=== PATIENT | male | born 1960 | race Caucasian/White ===

== ENCOUNTER → 2018-11-23 | Outpatient (CLI) | payer BC ==
[2018-11-23 16:56] LABS: BASOPHILS ABSOLUTE AUTO 0.02 K/mm3 (0.00-0.23); BASOPHILS PERCENT AUTO 0 % (0-2); EOSINOPHILS ABSOLUTE AUTO 0.01 K/mm3 (0.00-0.68); EOSINOPHILS PERCENT AUTO 0 % (0-6); Hemoglobin 13.1 g/dL (13.5-17.5); IMMATURE GRAN ABSOLUTE AUTO 0.04 K/mm3 (0.00-0.10); IMMATURE GRAN PERCENT AUTO 0 % (0-1); LYMPHOCYTES ABSOLUTE AUTO 1.74 K/mm3 (0.84-5.20); LYMPHOCYTES PERCENT AUTO 19 % (21-46); MONOCYTES ABSOLUTE AUTO 0.92 K/mm3 (0.16-1.47); MONOCYTES PERCENT AUTO 10 % (4-13); Mean Corpuscular HGB 30.3 pg (26.0-34.0); Mean Corpuscular HGB Conc 34.5 g/dL (31.5-36.5); Mean Corpuscular Volume 88 fL (80-100); Mean Platelet Volume 10.6 fL (9.1-12.4); NEUTROPHILS ABSOLUTE AUTO 6.48 K/mm3 (1.96-9.15); NEUTROPHILS PERCENT AUTO 70 % (41-73); Platelet Count 151 K/mm3 (150-400); RDW Coefficient Variation 12.3 % (11.7-14.2); RDW Standard Deviation 39.5 fL (35.1-46.3); Red Blood Cell Count 4.33 M/mm3 (4.30-5.90); White Blood Cell Count 9.21 K/mm3 (4.00-11.30)
[2018-11-23 17:20] LABS: Influenza A Negative (NEGATIVE); Influenza B Negative (NEGATIVE)
[2018-11-23 17:21] LABS: Alanine Aminotransfer (ALT/SGP 34 U/L (12-78); Albumin, Blood 3.9 g/dL (3.4-5.0); Albumin/Globulin Ratio 1.1 (0.8-1.8); Alk Phos 105 U/L (50-136); Anion Gap 7 mmol/L (6-16); Aspartate Aminotrans (AST/SGOT 24 U/L (12-37); Bilirubin, Total 2.7 mg/dL (0.1-1.0); Blood Urea Nitrogen 15 mg/dL (8-24); Bun/Creatinine Ratio 15.9 (12.0-20.0); CO2, Blood 29 mmol/L (21-32); Calcium, Blood 8.7 mg/dL (8.5-10.1); Chloride, Blood 100 mmol/L (98-108); Creatinine, Blood 0.94 mg/dL (0.60-1.20); Globulin, Blood 3.6 g/dL (2.2-4.0); Glomerular Filtration Rate >60 (60-); Glucose, Blood 109 mg/dL (70-99); Potassium, Blood 3.6 mmol/L (3.5-5.5); Sodium, Blood 136 mmol/L (136-145); Total Protein, Blood 7.5 g/dL (6.4-8.2)
== END | disposition home or self-care (01) ==
LOC: LAB 16:25 → LAB SHORT 16:25
PROVIDERS: Physician Assistant
DX: R50.9 Fever, unspecified (principal); R53.83 Other fatigue
CPT/HCPCS: 80053; 83690; 85025; 87804

== ENCOUNTER → 2018-12-21 | Outpatient (CLI) | payer BC ==
[2018-12-21 12:57] LABS: BASOPHILS ABSOLUTE AUTO 0.02 K/mm3 (0.00-0.23); BASOPHILS PERCENT AUTO 0 % (0-2); EOSINOPHILS ABSOLUTE AUTO 0.01 K/mm3 (0.00-0.68); EOSINOPHILS PERCENT AUTO 0 % (0-6); Hematocrit 40.2 % (37.0-53.0); Hemoglobin 13.7 g/dL (13.5-17.5); IMMATURE GRAN ABSOLUTE AUTO 0.03 K/mm3 (0.00-0.10); IMMATURE GRAN PERCENT AUTO 0 % (0-1); LYMPHOCYTES ABSOLUTE AUTO 0.92 K/mm3 (0.84-5.20); LYMPHOCYTES PERCENT AUTO 12 % (21-46); MONOCYTES ABSOLUTE AUTO 0.72 K/mm3 (0.16-1.47); MONOCYTES PERCENT AUTO 9 % (4-13); Mean Corpuscular HGB 29.6 pg (26.0-34.0); Mean Corpuscular HGB Conc 34.1 g/dL (31.5-36.5); Mean Corpuscular Volume 87 fL (80-100); Mean Platelet Volume 11.5 fL (9.1-12.4); NEUTROPHILS PERCENT AUTO 79 % (41-73); Platelet Count 159 K/mm3 (150-400); RDW Standard Deviation 41.2 fL (35.1-46.3); Red Blood Cell Count 4.63 M/mm3 (4.30-5.90)
[2018-12-21 13:11] LABS: Alanine Aminotransfer (ALT/SGP 25 U/L (12-78); Albumin, Blood 3.8 g/dL (3.4-5.0); Albumin/Globulin Ratio 1.1 (0.8-1.8); Alk Phos 95 U/L (50-136); Anion Gap 6 mmol/L (6-16); Aspartate Aminotrans (AST/SGOT 22 U/L (12-37); Bilirubin, Total 2.4 mg/dL (0.1-1.0); Blood Urea Nitrogen 15 mg/dL (8-24); Bun/Creatinine Ratio 16.3 (12.0-20.0); CO2, Blood 28 mmol/L (21-32); Calcium, Blood 8.5 mg/dL (8.5-10.1); Chloride, Blood 101 mmol/L (98-108); Creatinine, Blood 0.92 mg/dL (0.60-1.20); Globulin, Blood 3.6 g/dL (2.2-4.0); Glomerular Filtration Rate >60 (60-); Glucose, Blood 90 mg/dL (70-99); Sodium, Blood 135 mmol/L (136-145); Total Protein, Blood 7.4 g/dL (6.4-8.2)
== END | disposition home or self-care (01) ==
LOC: LAB SHORT 11:45 → LAB 11:45
PROVIDERS: Emergency Medicine
DX: R53.83 Other fatigue (principal)
CPT/HCPCS: 80053; 83690; 85025

== ENCOUNTER 2019-01-05 07:51 | Emergency (ER) | payer BC ==
[~2019-01-05] VITALS: Ht 180.3 cm; Wt 72.6 kg
[2019-01-05 08:33] LABS: BASOPHILS ABSOLUTE AUTO 0.02 K/mm3 (0.00-0.23); BASOPHILS PERCENT AUTO 0 % (0-2); EOSINOPHILS ABSOLUTE AUTO 0.07 K/mm3 (0.00-0.68); EOSINOPHILS PERCENT AUTO 1 % (0-6); Hematocrit 40.2 % (37.0-53.0); Hemoglobin 13.3 g/dL (13.5-17.5); IMMATURE GRAN ABSOLUTE AUTO 0.03 K/mm3 (0.00-0.10); IMMATURE GRAN PERCENT AUTO 0 % (0-1); LYMPHOCYTES ABSOLUTE AUTO 1.62 K/mm3 (0.84-5.20); LYMPHOCYTES PERCENT AUTO 20 % (21-46); MONOCYTES ABSOLUTE AUTO 0.65 K/mm3 (0.16-1.47); MONOCYTES PERCENT AUTO 8 % (4-13); Mean Corpuscular HGB Conc 33.1 g/dL (31.5-36.5); Mean Corpuscular Volume 85 fL (80-100); Mean Platelet Volume 10.2 fL (9.1-12.4); NEUTROPHILS ABSOLUTE AUTO 5.66 K/mm3 (1.96-9.15); NEUTROPHILS PERCENT AUTO 70 % (41-73); Platelet Count 230 K/mm3 (150-400); RDW Coefficient Variation 12.8 % (11.7-14.2); RDW Standard Deviation 39.2 fL (35.1-46.3); Red Blood Cell Count 4.75 M/mm3 (4.30-5.90); White Blood Cell Count 8.05 K/mm3 (4.00-11.30)
[2019-01-05 09:00] LABS: Alanine Aminotransfer (ALT/SGP 45 U/L (12-78); Albumin, Blood 3.6 g/dL (3.4-5.0); Alk Phos 92 U/L (50-136); Anion Gap 7 mmol/L (6-16); Aspartate Aminotrans (AST/SGOT 49 U/L (12-37); Bilirubin, Total 0.9 mg/dL (0.1-1.0); Blood Urea Nitrogen 9 mg/dL (8-24); Bun/Creatinine Ratio 11.2 (12.0-20.0); CO2, Blood 29 mmol/L (21-32); Chloride, Blood 104 mmol/L (98-108); Creatinine, Blood 0.81 mg/dL (0.60-1.20); Globulin, Blood 3.7 g/dL (2.2-4.0); Glomerular Filtration Rate >60 (60-); Glucose, Blood 130 mg/dL (70-99); Potassium, Blood 3.6 mmol/L (3.5-5.5); Sodium, Blood 140 mmol/L (136-145); Total Protein, Blood 7.3 g/dL (6.4-8.2)
[2019-01-05 09:01] LABS: Troponin I 0.037 ng/mL (0.000-0.040)
== END 2019-01-05 10:10 | disposition home or self-care (01) ==
LOC: ER 07:51
PROVIDERS: Emergency Medicine
DX: R78.81 Bacteremia (principal); R63.4 Abnormal weight loss; Z68.22 Body mass index [BMI] 22.0-22.9, adult
CPT/HCPCS: 36415; 71046; 80053; 83690; 84484; 85025; 93005; 93010; 99285-25

== ENCOUNTER → 2024-09-05 | Outpatient (CLI) | payer OTHER ==
[~2024-09-05] MED LIST: AMOX-CLAV 875-1 EAC5
== END ==
LOC: LAB SHORT 14:56 → LAB 14:56
DX: J36 Peritonsillar abscess (principal)
CPT/HCPCS: 87081

== ENCOUNTER 2024-09-09 13:28 | Emergency (ER) | payer MEDICARE, OTHER ==
[~2024-09-09] VITALS: Ht 180.3 cm; Wt 78.9 kg
[2024-09-09 14:44] LABS: BASOPHILS ABSOLUTE AUTO 0.03 K/mm3 (0.00-0.23); BASOPHILS PERCENT AUTO 0 % (0-2); EOSINOPHILS ABSOLUTE AUTO 0.12 K/mm3 (0.00-0.68); EOSINOPHILS PERCENT AUTO 1 % (0-6); Hematocrit 40.7 % (37.0-53.0); IMMATURE GRAN ABSOLUTE AUTO 0.03 K/mm3 (0.00-0.10); IMMATURE GRAN PERCENT AUTO 0 % (0-1); LYMPHOCYTES ABSOLUTE AUTO 1.64 K/mm3 (0.84-5.20); LYMPHOCYTES PERCENT AUTO 19 % (21-46); MONOCYTES ABSOLUTE AUTO 0.54 K/mm3 (0.16-1.47); MONOCYTES PERCENT AUTO 6 % (4-13); Mean Corpuscular HGB 29.2 pg (26.0-34.0); Mean Corpuscular HGB Conc 34.4 g/dL (31.5-36.5); Mean Corpuscular Volume 85 fL (80-100); Mean Platelet Volume 9.7 fL (9.1-12.4); NEUTROPHILS ABSOLUTE AUTO 6.13 K/mm3 (1.96-9.15); NEUTROPHILS PERCENT AUTO 72 % (41-73); Platelet Count 232 K/mm3 (150-400); RDW Coefficient Variation 13.3 % (11.7-14.2); RDW Standard Deviation 41.3 fL (35.1-46.3); Red Blood Cell Count 4.79 M/mm3 (4.30-5.90); White Blood Cell Count 8.49 K/mm3 (4.00-11.30)
[2024-09-09 15:08] LABS: C-REACTIVE PROTEIN, EXT RANGE 0.38 mg/dL (0.000-0.300)
[2024-09-09 15:11] LABS: Albumin/Globulin Ratio 1.3 (0.8-1.8); Bilirubin, Total 1.6 mg/dL (0.1-1.0); Bun/Creatinine Ratio 12.8 (12.0-20.0); Calcium, Blood 9.1 mg/dL (8.5-10.1); Creatinine, Blood 0.94 mg/dL (0.60-1.20); Potassium, Blood 3.8 mmol/L (3.5-5.5)
[2024-09-09] MEDS ORDERED: AMOX-CLAV 875-1 EAC5 (15:40)
[2024-09-09 16:46] VITALS: BP 141/87
== END 2024-09-09 19:10 | disposition home or self-care (01) ==
LOC: ER 13:28
PROVIDERS: Physician Assistant
DX: J39.2 Other diseases of pharynx (principal)
CPT/HCPCS: 70491; 80053; 85025; 86140; 93005; 93010; 99284-25; Q9967

== ENCOUNTER 2024-09-29 13:44 | Day surgery (SDC) | payer OTHER ==
[2024-09-29] VITALS (12 sets, daily range): BP systolic 115–150; BP diastolic 68–92
[~2024-09-29] VITALS: Ht 180.3 cm; Wt 72.8 kg
[~2024-09-29 13:44] MED LIST changes: +C COMPLEX1000 M1 PO
[2024-09-29] MEDS ORDERED: Lactated Ringer's 1,000 ML IV SCH (13:45)
[2024-09-29] MEDS ORDERED: CeFAZolin Sodium 2,000 MG in NS 100 ML IV SCH (13:45)
[2024-09-29] MEDS ORDERED: CeFAZolin Sodium 2,000 MG VIAL ONE (13:49)
[2024-09-29] MEDS ORDERED: ASCO500 PO (14:15)
--- NOTE | 2024-09-29 14:29 | NUR ---
History, Chart, Medications and Allergies reviewed before start of procedure.Patient confirms NPO status and agrees with scheduled surgery.PRE OP TEACHING DONE. AT BEDSIDE
[2024-09-29] MEDS ORDERED: Bupivacaine 0.5% HCl 5 MG/ML 30MLVIAL ONE ×2 (14:40→15:30)
[2024-09-29] MEDS ORDERED: propofoL 20 ML IV ONE (14:41)
[2024-09-29] MEDS ORDERED: Midazolam HCl 1MG / ML 2ML Vial ONE (14:42)
[2024-09-29] MEDS ORDERED: FentaNYL Citrate 50 MCG/ML 2 ML Injection ONE ×2 (14:42→16:11)
[2024-09-29] MEDS ORDERED: Scopolamine Hydrobromide Patch TOP ONE (14:55)
[2024-09-29] MEDS ORDERED: Ketorolac Tromethamine 30mg Vial ONE (15:19)
[2024-09-29] MEDS ORDERED: Dexamethasone Sod Phos 10 MG/ML 1ML VIAL ONE (15:19)
[2024-09-29] MEDS ORDERED: Ondansetron HCl 2 MG / ML 2ML Vial ONE (15:29)
[2024-09-29] MEDS ORDERED: Sugammadex Sodium 200 MG/2ML SDV (100 MG/ML) ONE (16:13)
[2024-09-29] MEDS ORDERED: OxyCODONE 5 mg/Acetamin 325 mg TABLET PO PRN (17:00)
[2024-09-29] MEDS ORDERED: TraMADol HCl 50 MG Tab PO ONE (17:30)
--- NOTE | 2024-09-29 18:00 | NUR ---
Patient up to Ambulate independently. Gait steady. Discharge instructions reviewed with patient. Patient verbalizes understanding. Copy given to patient to take home. Patient States Post-Procedure ride home has been arranged. PT HAS APPOINTMENT TOMORROW WITH MICROBIOLOGY DIRECTOR FOR GTUBE USE, SITES X 4 C/D/I DRSG AROUND GTUBE CLEAR PT TOLERATIONG PO WELL
== END 2024-09-29 23:00 | disposition home or self-care (01) ==
LOC: ORSCMMR 13:44 → ORD 15:00 → ORSCMMR 23:00
PROVIDERS: Surgery
PROC: 0DH64UZ Insertion of Feeding Device into Stomach, Percutaneous Endoscopic Approach (ICD-10-PCS; principal; 2024-09-29 15:00)
PROC: 8E0W4CZ Robotic Assisted Procedure of Trunk Region, Percutaneous Endoscopic Approach (ICD-10-PCS; principal; 2024-09-29 15:00)
DX: C10.9 Malignant neoplasm of oropharynx, unspecified (principal); C77.0 Secondary and unspecified malignant neoplasm of lymph nodes of head, face and neck; I42.2 Other hypertrophic cardiomyopathy; Z87.891 Personal history of nicotine dependence
CPT/HCPCS: A9270; C1728; J0690; J1100; J1885; J2250; J2405; J2704; J3010; J7120

== ENCOUNTER 2025-01-01 23:15 | Inpatient (IN) | payer MEDICARE, BC ==
[~2025-01-01] VITALS: Ht 180.3 cm; Wt 70.9 kg
[~2025-01-01 23:15] MED LIST changes: +ASCO500 PO
[2025-01-01 23:52] LABS: Source, Urine Clean Catch
[2025-01-02] VITALS (26 sets, daily range): BP systolic 91–125; BP diastolic 60–78
[2025-01-02 00:05] LABS: Bilirubin, Urine Neg (Neg); Blood, Urine Neg (Neg); Glucose Qualitative, Urine Neg (Neg); Ketones, Urine Neg (Neg); Leukocyte Esterase, Urine Neg (Neg); Nitrite, Urine Neg (Neg); Protein, Urine 1+ (Neg); Urobilinogen, Urine NORM (Normal)
[2025-01-02 00:10] LABS: Appearance, Urine Clear (Clear); Color, Urine Yellow (P-Yellow)
[2025-01-02] MEDS ORDERED: NS 1,000 ML IV ONE (00:24)
[2025-01-02] MEDS ORDERED: Ondansetron HCl 2 MG / ML 2ML Vial ONE (00:24)
[2025-01-02] MEDS ORDERED: DiphenhydrAMINE HCl 50 MG/ML 1ML Vial ONE (00:29)
[2025-01-02 00:39] LABS: Hematocrit 35.6 % (37.0-53.0); Hemoglobin 12.2 g/dL (13.5-17.5); Mean Corpuscular HGB 31.1 pg (26.0-34.0); Mean Corpuscular HGB Conc 34.3 g/dL (31.5-36.5); Mean Corpuscular Volume 91 fL (80-100); Mean Platelet Volume 9.5 fL (9.1-12.4); Platelet Count 231 K/mm3 (150-400); RDW Coefficient Variation 15.5 % (11.7-14.2); RDW Standard Deviation 50.8 fL (35.1-46.3); Red Blood Cell Count 3.92 M/mm3 (4.30-5.90); White Blood Cell Count 18.79 K/mm3 (4.00-11.30)
[2025-01-02] MEDS ORDERED: Cefepime HCl 2,000 MG in NS 100 ML IV ONE (00:50)
[2025-01-02 00:57] LABS: BAND PERCENT MAN 12 % (0-8); BASOPHILS PERCENT MAN 0 % (0-2); EOSINOPHILS PERCENT MAN 0 % (0-6); LYMPHOCYTES ABSOLUTE MAN 0.37 K/mm3 (0.84-5.20); LYMPHOCYTES PERCENT MAN 2 % (21-46); MONOCYTES ABSOLUTE MAN 0.56 K/mm3 (0.16-1.47); MONOCYTES PERCENT MAN 3 % (4-13); MYELOCYTE ABSOLUTE MAN 0.18 K/mm3 (0.00-0.00); MYELOCYTE PERCENT MAN 1 % (0-0); NEUTROPHILS ABSOLUTE MAN 17.66 K/mm3 (1.96-9.15); SEG NEUTROPHILS PERCENT MAN 82 % (41-73); TOTAL CELLS COUNTED 100
[2025-01-02 01:02] LABS: Albumin, Blood 3.6 g/dL (3.4-5.0); Albumin/Globulin Ratio 1.2 (0.8-1.8); Bilirubin, Total 1.6 mg/dL (0.1-1.0); Bun/Creatinine Ratio 28.3 (12.0-20.0); Calcium, Blood 9.1 mg/dL (8.5-10.1); Creatinine, Blood 0.81 mg/dL (0.60-1.20); Globulin, Blood 3.1 g/dL (2.2-4.0); Potassium, Blood 3.8 mmol/L (3.5-5.5); Total Protein, Blood 6.7 g/dL (6.4-8.2)
[2025-01-02] MEDS ORDERED: Ketorolac Tromethamine 15mg Vial IV ONE (02:05)
[2025-01-02 03:23] LABS: Adenovirus Not Detected (NOT DETECT); Coronavirus 229E Not Detected (NOT DETECT); Coronavirus HKU1 Not Detected (NOT DETECT); Coronavirus NL63 Not Detected (NOT DETECT); Coronavirus OC43 Not Detected (NOT DETECT); Human Metapneumovirus Not Detected (NOT DETECT); Human Rhinovirus/Enterovirus Not Detected (NOT DETECT); SARS-Cov-2 (COVID-19), BioFire Not Detected (NOT DETECT)
[2025-01-02 03:24] LABS: Bordetella pertussis Not Detected (NOT DETECT); Chlamydophila pneumoniae Not Detected (NOT DETECT); Influenza A/2009-H1 Not Detected (NOT DETECT); Influenza A/H1 Not Detected (NOT DETECT); Influenza A/H3 Not Detected (NOT DETECT); Influenza B Not Detected (NOT DETECT); Mycoplasma pneumoniae Not Detected (NOT DETECT); Parainfluenza Virus 1 Not Detected (NOT DETECT); Parainfluenza Virus 2 Not Detected (NOT DETECT); Parainfluenza Virus 3 Not Detected (NOT DETECT); Parainfluenza Virus 4 Not Detected (NOT DETECT); Respiratory Syncytial Virus Not Detected (NOT DETECT)
[2025-01-02] MEDS ORDERED: Lactated Ringer's 1,000 ML IV ONE (04:00)
[2025-01-02] MEDS ORDERED: Lactated Ringer's 1,000 ML IV SCH ×2 (07:00→12:55)
[2025-01-02] MEDS ORDERED: Lactobacil 2-S.Thermo-Bifido 1 1 Cap PO SCH (09:00)
[2025-01-02] MEDS ORDERED: Enoxaparin 40 MG/0.4 ML SYR SC SCH (09:00)
--- NOTE | 2025-01-02 09:20 | NUR ---
ASSUMPTION OF CARE PT BROUGHT TO ICU 6 AT THIS TIME. PT ABLE TO STAND AND TRANSFER SELF TO ICU BED. HE IS RECEIVING LR 150ML/HR. HE IS ALERT AND ORIENTED. HE IS ON 2L NC WITH SPO2 >97%. PT DENIES SOB. RR 20S-30. SINUS TACH ON MONITOR WITH RATE IN 100S. MAP >65. PEG TUBE IN PLACE. BED IN LOW POSITION, CALL LIGHT WITHIN REACH AND FAMILY AT BEDSIDE.
[2025-01-02] MEDS ORDERED: Acetaminophen 160MG / 5ML 10.15 UDC PT PRN (09:30)
[2025-01-02 09:39] LABS: Adenovirus F 40/41 Not Detected (NOT DETECT); Astrovirus Not Detected (NOT DETECT); Campylobacter Sp Not Detected (NOT DETECT); Cryptosporidium Not Detected (NOT DETECT); Cyclospora Cayetanensis Not Detected (NOT DETECT); E. Coli O157 Not Detected (NOT DETECT); Entamoeba Histolytica Not Detected (NOT DETECT); Enteroaggregative E. coli-EAEC Not Detected (NOT DETECT); Enteropathogenic E. coli-EPEC Not Detected (NOT DETECT); Enterotoxigenic E. coli-ETEC Not Detected (NOT DETECT); Giardia Lamblia Not Detected (NOT DETECT); Norovirus GI/GII Not Detected (NOT DETECT); Plesiomonas Shigelloides Not Detected (NOT DETECT); Rotavirus A Not Detected (NOT DETECT); Salmonella Sp Not Detected (NOT DETECT); Sapovirus Not Detected (NOT DETECT); Shiga Toxin-prod E. coli-STEC Not Detected (NOT DETECT); Shigella/Enteroin E. coli-EIEC Not Detected (NOT DETECT); Vibrio Cholerae Not Detected (NOT DETECT); Vibrio Sp Not Detected (NOT DETECT); Yersinia Enterocolitica Not Detected (NOT DETECT)
--- NOTE | 2025-01-02 10:00 | NUR ---
TUBE FEED/CODE STATUS PT HAD PEG TUBE PLACED IN SEPTEMBER OF THIS YEAR. HE USES [email or web address] PEPTIDE 1.5CAL/ML, ELECTROLYTE MIX AND WATER Q3HRS DURING THE DAY. PT AND FAMILY MANAGING FEEDING AND FLUSHES. PER HOSPITALIST, INSTRUCTED TO DOUBLE WATER FLUSHES. PT AND FAMILY VERBALIZE UNDERSTANDING. PT AND FAMILY REPORT THEY HAVE A POLST FORM AT HOME THAT HAS DNR/FULL TREATMENT LISTED. PT VERBALIZES UNDERSTANDING OF DNR AND ELECTS TO BE DNR. PALLIATIVE CARE CONSULT ORDERED.
[2025-01-02] MEDS ORDERED: Cosyntropin 0.25 MG / ML 1ML Vial IV ONE (12:55)
[2025-01-02] MEDS ORDERED: Cefepime HCl 1,000 MG in NS 100 ML IV SCH ×2 (13:00→18:30)
[2025-01-02] MEDS ORDERED: Vancomycin HCL 1,750 MG in NS 500 ML IV ONE (13:05)
--- NOTE | 2025-01-02 18:39 | NUR ---
SHIFT SUMMARY PT IS RECEIVING LR 100ML/HR. HE IS ALERT AND ORIENTED, ASSISTS WITH CARE ABLE. HE IS ON RA WITH SPO2 >94%. HE DENIES SOB. SINUS TACH ON MONITOR WITH RATE IN 100S. BP STABLE THROUGHOUT THE DAY WITH MAP >65. HE DENIES CP. PT HAS AN OCCASIONAL COUGH. HE REPORTS HE HAS HAD YELLOW/RED PHLEGM SINCE LAST RADIATION. PEG TUBE REMAINS IN PLACE WITH PT AND FAMILY MANAGING FEEDINGS. HE HAS USED THE URINAL MULTIPLE TIMES THROUGHOUT THE DAY. BED IN LOW POSITION, CALL LIGHT WITHIN REACH.
--- NOTE | 2025-01-02 20:33 | NUR ---
ASSUME CARE: BEDSIDE REPORT RECIEVED FROM DAYSDEFT RN. PT A/Ox4 AND PLEASANT WITH CARE. SBP 120s, MAP>65. MONITOR SHOW SINUS SR TO ST RATE 90s-100s. PT DENIES CP OR PRESSURE. SPO2>95% ON RA, PT DENIES SOB. PT ABLE TO TRANSFER 1P ASSIST AND USE URINAL AT BEDSIDE. PEG TUBE IN PLACE, TF MANAGED BY PT AND FAMILY. PT INTRUCTED TO USE CALL LIGHT FOR NEEDS. WILL UPDATE NEEDED.
[2025-01-03] VITALS (10 sets, daily range): BP systolic 94–135; BP diastolic 63–78
[2025-01-03] MEDS ORDERED: Vancomycin HCL 1,250 MG in NS 250 ML IV SCH (01:00)
[2025-01-03 03:40] LABS: BASOPHILS ABSOLUTE AUTO 0.02 K/mm3 (0.00-0.23); BASOPHILS PERCENT AUTO 0 % (0-2); EOSINOPHILS ABSOLUTE AUTO 0.12 K/mm3 (0.00-0.68); EOSINOPHILS PERCENT AUTO 1 % (0-6); Hematocrit 27.3 % (37.0-53.0); Hemoglobin 9.3 g/dL (13.5-17.5); IMMATURE GRAN ABSOLUTE AUTO 0.04 K/mm3 (0.00-0.10); IMMATURE GRAN PERCENT AUTO 0 % (0-1); LYMPHOCYTES ABSOLUTE AUTO 0.77 K/mm3 (0.84-5.20); LYMPHOCYTES PERCENT AUTO 7 % (21-46); MONOCYTES ABSOLUTE AUTO 0.44 K/mm3 (0.16-1.47); MONOCYTES PERCENT AUTO 4 % (4-13); Mean Corpuscular HGB 31.2 pg (26.0-34.0); Mean Corpuscular HGB Conc 34.1 g/dL (31.5-36.5); Mean Corpuscular Volume 92 fL (80-100); Mean Platelet Volume 9.6 fL (9.1-12.4); NEUTROPHILS ABSOLUTE AUTO 9.88 K/mm3 (1.96-9.15); NEUTROPHILS PERCENT AUTO 88 % (41-73); Platelet Count 159 K/mm3 (150-400); RDW Coefficient Variation 15.9 % (11.7-14.2); RDW Standard Deviation 53.5 fL (35.1-46.3); Red Blood Cell Count 2.98 M/mm3 (4.30-5.90); White Blood Cell Count 11.27 K/mm3 (4.00-11.30)
[2025-01-03 03:59] LABS: Bun/Creatinine Ratio 26.4 (12.0-20.0); Calcium, Blood 8.4 mg/dL (8.5-10.1); Creatinine, Blood 0.68 mg/dL (0.60-1.20); Potassium, Blood 3.8 mmol/L (3.5-5.5)
--- NOTE | 2025-01-03 05:32 | NUR ---
SHIFT SUMMARY: PT A/Ox4 AND PLEASANT WITH CARE, ABLE TO MAKE NEEDS KNOWN. VSS AND PT AFEBRILE T/O THE NIGHT. PT ABLE TO REPOSITION SELF AND USE URINAL AT BEDSIDE INDEPENDENTLY. GTUBE PATENT, MANAGED BY PT. WILL REPORT TO ONCOMING RN.
--- NOTE | 2025-01-03 05:40 | NUR ---
SHIFT SUMMARY: PT INTUBATED AND SEDATED, RASS -2. PROPOFOL AT 55 MCG/KG/MIN. ATTEMPTED TO DECREASE SEDATION T/O THE NIGHT, HOWEVER PT SEEMED TO NOT TOLERATE IT PT WOULD COUGH AND BITE DOWN ON ETT. FENTANYL GTT AT 50 MCG/HR. VSS, SPO2>90% ON VENT, SETTINGS VC 12/500/10/60%. PT HAS THICK ALCARAZ SECRETIONS. OGT PATENT INFUSING TF. DUNNE PATENT DRAINING DARK YELLOW URINE TO GRAVITY. WILL REPORT TO ONCOMING RN.
--- NOTE | 2025-01-03 07:00 | NUR ---
ASSUMPTION OF CARE PT IS ALERT AND ORIENTED. PROVIDING SELF SCHEDULED TUBE FEED VIA PEG. HE IS ON RA. HE CONTINUES TO HAVE A COUGH WITH OCCASIONAL YELLOW/PINK PHLEGM. C/O THROAT DISCOMFORT THAT HAS BEEN GOING ON SINCE LAST RADIATION BUT HAS BEEN GETTING WORSE OVER THE LAST FEW DAYS. SINUS ON MONITOR WITH RATE IN 80S-90S. BP STABLE WITH MAP >65. PT VOIDED IN URINAL. BED IN LOW POSITION, CALL LIGHT WITHIN REACH. HOSPITALIST ROUNDED. AT BEDSIDE AND UPDATED ON PLAN OF CARE.
[2025-01-03] MEDS ORDERED: Clotrimazole 10 MG Troche MT SCH (09:00)
[2025-01-03] MEDS ORDERED: Vancomycin HCL 1,750 MG in NS 500 ML IV SCH (09:00)
--- NOTE | 2025-01-03 13:18 | NUR ---
PALLIATIVE CARE VISIT: MET WITH PT AND SPOUSE KARRI IN PT ROOM. PT IS A/O X4, AWAKE AND ALERT, ABLE TO HAVE MEANINGFUL DISCUSSION. DISCUSS POLST OPTIONS, DNR, SELECTIVE TREATMENT VS FULL CODE WITH FULL MEASURES. PT SELECTS DNR SELECTIVE MEASURES. DISCUSS SYMPTOM MANAGEMENT. PT REPORTS HE STILL HAS PAIN TO HIS THROAT AND CANNOT TASTE FOODS. PAIN IS TOLERABLE AND HE IS ABLE TO EAT SOFT FOODS. PT STILL UTILIZES PEG TUBE TO MEET HIS DAILY CALORIE NEEDS OF [address]. PT DENIES NAUSEA, CONSTIPATION, DIFFICULTY SLEEPING. DISCUSSED METHODS OF TRAINING HIS BRAIN TO RECOGNIZE FOOD TASTE AND SMELLS. GOALS OF CARE: PT STATES HE COMPLETED 2/3 ROUNDS OF CHEMO/RADIATION TREATMENT. DR. KNAPP ENDED TREATMENT EARLY DUE TO PT NOT TOLERATING CHEMO. PLAN IS TO GET A PETSCAN THIS MARCH TO SEE IF TREATMENT WAS EFFECTIVE OR NOT. PT IS HOPEFUL. DISCUSSED ADVANCED CARE PLANNING WITH PT. ENCOURAGED PT TO COMPLETE HIS ADVANCE DIRECTIVE. GAVE PAMPHLET TO PT. DR. BRENNAN NOTIFIED POLST COMPLETED AND NEEDS SIGNATURE.
--- NOTE | 2025-01-03 14:06 | NUR ---
RN talked to pt about getting cleaned up for the day. Pt requested a shower. Pt is now MED status and would like to wait to see if he will be moved to a room up on med floor. He would feel better taking a shower in his own room and not the shared shower in ICU.
--- NOTE | 2025-01-03 17:56 | NUR ---
SHIFT SUMMARY PT IS ALERT AND ORIENTED. HE IS ON RA, DENIES SOB. HE CONTINUES TO HAVE THROAT DISCOMFORT AND A PRODUCTIVE COUGH. PT HAS BEEN INDEPENDENT IN THE ROOM AND USES CALL LIGHT APPROPRIATELY. PT ABLE TO PERFORM ADLS. BED IN LOW POSITION, CALL LIGHT WITHIN REACH. AT BEDSIDE THROUGHOUT THE DAY.
--- NOTE | 2025-01-03 18:35 | NUR ---
TRANSFER PT TRANSFERRED TO 334 VIA WHEELCHAIR. PACKAGED BELONGINGS AND ACCOMPANIED PT TO NEW ROOM. AIR LIFT OPERATOR IN ROOM UPON ARRIVAL. PT TRANSFERRED SELF FROM WHEELCHAIR TO MEDICAL BED WITHOUT DIFFICULTY.
--- NOTE | 2025-01-03 18:56 | NUR ---
ARRIVED TO FLOOR. A/O X4, FAMILY PRESENT.
[2025-01-03] MEDS ORDERED: NS 250 ML IV PRN (19:10)
--- NOTE | 2025-01-04 02:51 | NUR ---
SHIFT SUMMARY NO ACUTE EVENTS DURING THIS SHIFT. PT IS A/O X4, FLAT AFFECT, COOPERATIVE WITH CARE. MULTIPLE FAMILY MEMBERS AND FRIENDS BY THE BEDSIDE @HS. PT'S FAMILY BRINGS THE FORMULA FOR TUBE FEEDINGS; PT ADMINISTERS THE FORMULA INDEPENDENTLY. HS SCHEDULED PROBIOTIC ADMINISTERED VIA PEG TUBE BY THIS OIL AND GAS WELL TREATMENT OPERATOR WITH H20 FLUSH BEFORE AND AFTER. PT DENIES PAIN AND N/V. PT REPORTS OCCASIONAL PRODUCTIVE COUGH. DENIES A NEED FOR A YANKER SUCTION WAND. HS CLOTRIMAZOLE TAB ADMINISTERED ORDERED. PT HAS A NPO ORDER, SIPS OF GATORADE AND H2O TOLERATED. AFEBRILE, VSS. ON RA. DENIES SOB. SWALLOW INTACT. VANCO IV ABX AND MAXIPIME ADMNISTERED ORDERED. PT TOLERATING WELL. BED AT THE LOWEST POSITION, CALL LIGHT W/I REACH. PT IS ABLE TO MAKE HIS NEEDS KNOWN.
[2025-01-04 05:08] VITALS: BP 139/86
[2025-01-04 07:30] VITALS: BP 122/86
[2025-01-04 09:19] LABS: Creatinine, Blood 0.69 mg/dL (0.60-1.20); Vancomycin, Trough 19.5 ug/mL (5.0-10.0)
[2025-01-04] MEDS ORDERED: Vancomycin HCL 1,500 MG in NS 250 ML IV SCH (10:00)
[2025-01-04] MEDS ORDERED: DiphenhydrAMINE HCL/Zinc Acet Cream TOP PRN (10:05)
--- NOTE | 2025-01-04 11:42 | NUR ---
"Spiritual Casre | Pt. request Pt. is awake and sitting up in bed when he welcomed my visit. Pt. is pleasant. Spouse is present at bedside. Facilitate a life review and consider matters of german and belief. Listened with empathy and a calming presence. Pt. and spouse verbalize the sudden nature that Pts. throat cancer presented itself. Pt. displays evidence of being fully engaged and aware. Spouse is supportive. Prayed with the Pt. Pt. verbalized gratitude for the spiritual care visit and welcomed this maintenance of way clerk to return."
[2025-01-04 15:55] VITALS: BP 156/87
--- NOTE | 2025-01-04 16:47 | NUR ---
PALLIATIVE CARE NOTE: POLST SIGNED BY . SENT COPY TO REGISTRY, MEDICAL RECORDS AND ORIGINAL GIVEN BACK TO PT.
--- NOTE | 2025-01-04 18:18 | NUR ---
SHIFT SUMMARY NO ACUTE CHANGES. REMAINS A/OX4, ABLE TO MAKE NEEDS KNOWN AND USES CALL LIGHT APPROPRIATELY. COMPLETES BOLUS FEEDS INDEPENDENTLY - CHARTED IN I/O. CONTINUES ON IV ANTIBIOTICS. POSSIBLE DC TOMORROW. PT DENIES PAIN. NEW ONSET RASH ON PT BACK - BENADRYL CREAM ORDERED. PT CURRENTLY RESTING IN ROOM, BED IN LOWEST POSITION, CALL LIGHT WITHIN REACH. PT INDEPENDENT IN ROOM.
[2025-01-04 19:38] VITALS: BP 108/81
--- NOTE | 2025-01-05 02:46 | NUR ---
SHIFT SUMMARY NO ACUTE EVENTS DURING THIS SHIFT. PT CONTINUES BOLUS FEEDINGS INDEPENDENTLY. IV ABX'S INFUSED ORDERED. PT DENIES PAIN AND DISCOMFORT. @HS AND [id number] BY THE BEDSIDE. PLAN IS TO D/C ON SATURDAY. BED AT THE LOWEST POSITION, CALL LIGHT W/I REACH. PT IS A/O X4, ABLE TO MAKE HIS NEEDS KNOWN AND COOPERATIVE WITH CARE.
[2025-01-05 04:09] VITALS: BP 135/80
[2025-01-05 07:16] VITALS: BP 139/74
[2025-01-05 15:58] VITALS: BP 153/89
[2025-01-05] MEDS ORDERED: Lidocaine 2% Viscous Soln 20 ML,Nystatin 100,000 Unit/ml Susp 20 ML,Mag Hydrox/Al Hydro... MT SCH (17:00)
--- NOTE | 2025-01-05 18:36 | NUR ---
PT A&OX4, IND IN ROOM. IV ABX CONTINUED. MANAGES TUBE FEEDINGS INDEPENDENTLY. DENTAL HYGENIST SAW PT TODAY AND NOTED LARGE CANKER SORE IN PT MOUTH NEW ORDER FOR MAGIC MOUTHWASH IN PLACE. PT CALLS APPROPRIATELY, ABLE TO MAKE NEEDS KNOWN
[2025-01-05 19:29] VITALS: BP 133/84
[2025-01-06 02:58] VITALS: BP 127/89
[2025-01-06] MEDS ORDERED: Vancomycin HCL 1,250 MG in NS 250 ML IV SCH (03:00)
--- NOTE | 2025-01-06 05:18 | NUR ---
SHIFT SUMMARY NOC PT A/O X 4. PLEASANT AND COOPERATIVE WITH CARE. VSS. VANCOMYCIN TROUGH CAME BACK CRITICAL @ 22.0 AND PHARMACY ADJUSTED DOSING AND TIME. PT SELF MANAGING PEG TUBE. PT HAS CANKER SORE UNDER TONGUE AND IS RECEIVING MAGIC MOUTH WASH FOR TX PER EMAR. PT EXPECTED TO DISCHARGE HOME TODAY. PT CURRENTLY RESTING WITH BED IN LOWEST POSITION, AND CALL LIGHT WITHIN REACH.
[2025-01-06 05:48] LABS: BASOPHILS ABSOLUTE AUTO 0.05 K/mm3 (0.00-0.23); BASOPHILS PERCENT AUTO 1 % (0-2); EOSINOPHILS ABSOLUTE AUTO 0.06 K/mm3 (0.00-0.68); EOSINOPHILS PERCENT AUTO 1 % (0-6); Hematocrit 30.7 % (37.0-53.0); Hemoglobin 10.1 g/dL (13.5-17.5); IMMATURE GRAN ABSOLUTE AUTO 0.11 K/mm3 (0.00-0.10); IMMATURE GRAN PERCENT AUTO 2 % (0-1); LYMPHOCYTES ABSOLUTE AUTO 0.85 K/mm3 (0.84-5.20); LYMPHOCYTES PERCENT AUTO 16 % (21-46); MONOCYTES ABSOLUTE AUTO 0.46 K/mm3 (0.16-1.47); MONOCYTES PERCENT AUTO 9 % (4-13); Mean Corpuscular HGB 30.9 pg (26.0-34.0); Mean Corpuscular HGB Conc 32.9 g/dL (31.5-36.5); Mean Corpuscular Volume 94 fL (80-100); Mean Platelet Volume 9.7 fL (9.1-12.4); NEUTROPHILS ABSOLUTE AUTO 3.85 K/mm3 (1.96-9.15); NEUTROPHILS PERCENT AUTO 72 % (41-73); Platelet Count 187 K/mm3 (150-400); RDW Coefficient Variation 15.2 % (11.7-14.2); RDW Standard Deviation 52.6 fL (35.1-46.3); Red Blood Cell Count 3.27 M/mm3 (4.30-5.90); White Blood Cell Count 5.38 K/mm3 (4.00-11.30)
[2025-01-06 07:32] VITALS: BP 122/69
[2025-01-06] MEDS ORDERED: Acetaminophen325 M1 PT (11:30)
[2025-01-06] MEDS ORDERED: AMOCLA600S PT (11:31)
--- NOTE | 2025-01-06 13:12 | NUR ---
PT DISCHARGED WITH DC INSTRUCTIONS. WHEELCHAIR OUTSIDE TO PRIVATE CAR FOR A RIDE HOME. RX FAXED TO [facility].
== END 2025-01-06 13:10 | disposition home or self-care (01) | DRG 393 ==
LOC: ER 23:15 → MEDS 01-02 05:12 → ERHOLD 01-02 05:12 → ICUE 01-02 08:46 → MEDS 01-03 18:32
PROVIDERS: Internal Medicine; Student in an Organized Health Care Education/Training Program; ADMIT Student in an Organized Health Care Education/Training Program
DX: K94.22 Gastrostomy infection (principal); A41.9 Sepsis, unspecified organism; E43 Unspecified severe protein-calorie malnutrition; D84.89 Other immunodeficiencies; C10.9 Malignant neoplasm of oropharynx, unspecified; R73.9 Hyperglycemia, unspecified; D63.0 Anemia in neoplastic disease; I95.9 Hypotension, unspecified; Z92.3 Personal history of irradiation; Z92.21 Personal history of antineoplastic chemotherapy; Z68.20 Body mass index [BMI] 20.0-20.9, adult
CPT/HCPCS: 0202U; 36415; 71045; 80048; 80053; 80202; 80400; 82533; 82565; 83605; 83690; 84145; 85025; 87040; 87507; 93005; 93010; 96361; 96365; 96375; 99285-25; A9270; J0692; J0834; J1200; J1650; J1885; J2405; J3370; J7030; J7040; J7050; J7120